=== PATIENT | male | born 1975 | race Caucasian/White ===

== ENCOUNTER 2024-01-22 11:17 | Day surgery (SDC) | payer OTHER, SELFPAY ==
--- NOTE | 2024-01-21 20:54 | HPE_ITS ---
Assessment and Plan Assessment and plan (1) Encounter for screening colonoscopy: Status: Acute Assessment and plan: I reviewed the plan for a screening colonoscopy with Ricardo and the role of the test in terms of routine health maintenance. I explained the risks and the benefits of the procedure, and I think he is able to provide informed consent. History of Present Illness History of Present Illness Chief Complaint: screening colonoscopy Narrative: 48 y/o male with history of CAD (s/p stent placement [place] [facility] [place] GERD, HLD, diabetes, HTN and depression presents for colonoscopy screening pre-op. He us accompanied today by two corrections officers. He has a family history of colon cancer in his mother. He denies any changes in bowel habits including bloody or black tarry stools, abdominal pain, diarrhea or constipation. He denies constitutional symptoms. He denies chest pain, palpitations, dyspnea or dyspnea with exertion. He states he follows up often with [facility] cardiology . He denies prior history or family history of adverse reactions or complications with anesthesia. The patient denies any history of stroke, [place], seizures, bleeding or clotting disorders. He denies having any implanted metal in his body. Since his last office encounter, there have been no major changes to the history. [facility] All Active Problems Pain in right foot (Acute) Pain in left foot (Acute) Ingrown toenail (Acute) Encounter for screening colonoscopy (Acute) Diastasis recti (Acute) Medical History Hard of hearing Obesity Depression Onychomycosis GERD (gastroesophageal reflux disease) Hyperlipidemia NSTEMI (non-ST elevated myocardial infarction) x2. Per corrections F/U with cardiology 01/2023. Next appt 02/05/24. Diabetes Hypertension Surgical History H/O hand surgery H/O elbow surgery History of back surgery History of ankle surgery S/P cardiac catheterization (~07/05/22) [facility] [place] History of heart artery stent [facility] [place] stents total Social History Smoking/Tobacco Use Status: Former Tobacco Use Smoking risk assessment performed?: Yes Alcohol Intake: former Substance use type: does not use Housing: other Additional Social history: [facility] Allergies and Home Medications Allergies Allergy/AdvReac Type Severity Reaction Status Date / Time No Known Allergies Allergy Verified 01/22/24 12:19 Home Medications ?Medication ?Instructions ?Recorded ?Confirmed ?Type amlodipine 5 mg tablet 5 mg PO DAILY 02/01/23 01/22/24 History aspirin 81 mg tablet,delayed 81 mg PO DAILY 02/01/23 01/18/24 History release atorvastatin 80 mg tablet 80 mg PO DAILY 02/01/23 01/22/24 History chlorthalidone 50 mg tablet 25 mg PO DAILY 02/01/23 01/22/24 History clopidogrel 75 mg tablet 75 mg PO DAILY 02/01/23 01/18/24 History duloxetine 60 mg capsule,delayed 60 mg PO DAILY 02/01/23 01/22/24 History release empagliflozin 25 mg tablet 25 mg PO DAILY 02/01/23 01/22/24 History (Jardiance) fenofibrate nanocrystallized 145 145 mg PO DAILY 02/01/23 01/22/24 History mg tablet insulin regular human 100 unit/mL 1 sliding scale dose subcut 02/01/23 01/22/24 History injection solution (Novolin R USEASDIRECTD Regular U-100 Insulin) isosorbide mononitrate 60 mg 60 mg PO DAILY 02/01/23 01/22/24 History tablet,extended release 24 hr metoprolol succinate 50 mg 50 mg PO DAILY 02/01/23 01/22/24 History tablet,extended release 24 hr pantoprazole 40 mg tablet,delayed 40 mg PO DAILY 02/01/23 01/22/24 History release sacubitril 24 mg-valsartan 26 mg 1 tab PO BID 02/01/23 01/22/24 History tablet (Entresto) simethicone 180 mg capsule (Gas 180 mg PO DAILY 02/01/23 01/22/24 History Relief (simethicone)) insulin glargine 100 unit/mL (3 50 unit subcut QAM 06/28/23 01/22/24 History mL) subcutaneous pen (Lantus Solostar U-100 Insulin) metformin 1,000 mg tablet,extended 2,000 mg PO DAILY 11/16/23 01/22/24 History release 24hr (osmotic) acetaminophen 500 mg capsule 1,000 mg PO Q8H 01/18/24 01/22/24 History Exam Const General: cooperative, healthy appearing and not in acute distress Neck Neck: normal visual inspection, no lymphadenopathy and supple Resp Effort & Inspection: normal respiratory effort Auscultation: clear to auscultation bilaterally Cardio Jugular venous pressure: no JVD Rate: regular rate Rhythm: regular rhythm Heart Sounds: S1 normal and S2 normal GI Inspection: normal to inspection Palpation: soft, no guarding, no hernias and nontender Percussion: normal to percussion Auscultation: normal bowel sounds Neuro General: patient alert, patient awake and patient oriented x3 Psych Appearance: grossly normal
--- NOTE | 2024-01-21 20:56 | PDOC.DSDIS_ITS ---
Date of service: 01/22/24 Time of Service: 13:32 Discharge Plan Disposition Patient Disposition: Home Condition: Good Discharge Details Reason For Visit: screening colonoscopy Attending Provider: Thomas Ramos Primary Care Provider: Unknown,Unknown Home Meds and New Rx's Prescriptions: Continued insulin glargine [Lantus Solostar U-100 Insulin] 100 unit/mL (3 mL) insulin pen 50 unit subcut QAM Rx Instructions: Verified with [place] [facility] metformin 1,000 mg tablet extended release 24hr 2,000 mg PO DAILY amlodipine 5 mg tablet 5 mg PO DAILY aspirin 81 mg tablet,delayed release (DR/EC) 81 mg PO DAILY atorvastatin 80 mg tablet 80 mg PO DAILY chlorthalidone 50 mg tablet 25 mg PO DAILY clopidogrel 75 mg tablet 75 mg PO DAILY duloxetine 60 mg capsule,delayed release(DR/EC) 60 mg PO DAILY Entresto 24-26 mg tablet 1 tab PO BID fenofibrate nanocrystallized 145 mg tablet 145 mg PO DAILY isosorbide mononitrate 60 mg tablet extended release 24 hr 60 mg PO DAILY Jardiance 25 mg tablet 25 mg PO DAILY metoprolol succinate 50 mg tablet extended release 24 hr 50 mg PO DAILY Novolin R Regular U100 Insulin 100 unit/mL solution 1 sliding scale dose subcut USEASDIRECTD pantoprazole 40 mg tablet,delayed release (DR/EC) 40 mg PO DAILY simethicone [Gas Relief (simethicone)] 180 mg capsule 180 mg PO DAILY acetaminophen 500 mg capsule 1,000 mg PO Q8H Discharge Instructions Instructions: Diverticulosis Additional Instructions: According, we are able to complete your colonoscopy today without any difficulty. Everything went very smoothly. Your prep was excellent and I could see everything fine. I did not see any signs of tumors or polyps. You do have a little bit of diverticulosis. This occurs when the muscular portion of the colon wall weekends as we age. This causes the pockets to form. Sometimes t hese get inflamed, and cause quite a bit of pain within the abdomen. This flareups are typically referred to as diverticulitis. Hopefully, years will never bother you. Attached a little bit of information here about basic approaches to diverticular disease. Generally my recommendation is to maintain a diet that is rich in fiber, stay well-hydrated, and avoid symptoms of constipation. They have any questions, or need anything, please do not hesitate to ask, otherwise we will plan for repeat colonoscopy in 5 years based on your family history. 1. If tolerated, consume a soft, low fiber diet for 1-2 days. 2[address] Do not drive, drink alcohol, operate machinery, make critical decisions, or do activities that require coordination or balance for 24 hours. 3. Because air was put into your colon during the procedure, expelling air from your rectum (passing gas or farting) is normal. 4. You may not have a bowel movement for 1-3 days because of the colonoscopy prep. This is normal. 5. Go directly to the emergency room if you notice any of the following: Develop chills (warm to touch), or if you have a thermometer and your temperature is above 101 Difficulty breathing or difficultly swallowing Persistent vomiting Severe abdominal pain, other than gas cramps Severe chest pain Black, tarry stools Any bleeding ? exceeding one tablespoon 6. Call your physician if the site where your intravenous was started becomes red, swollen, painful, and warm to touch. 7. Your physician has reviewed your pre-procedure medications. Please continue to take those medications as previously ordered. You will be given specific information/education regarding any changes to your medications before leaving. Activity:: Activity as Tolerated Diet:: As Tolerated Discharge Orders Discharge Orders: Discharge Order (Routine); Ordered 01/21/24 Ordered By: Thomas Ramos DS: Diagnosis Discharge Diagnosis (1) Encounter for screening colonoscopy: Status: Acute Asessment and Plan: Diverticulosis; otherwise negative screening colonoscopy
--- NOTE | 2024-01-21 20:57 | COLE_ITS ---
Date of service: 01/22/24 Time of Service: 13:38 Colonoscopy Report Date of procedure: 01/22/24 Pre-op diagnosis general: screening colonoscopy Post-op diagnosis procedure note: other (Negative screening colonoscopy) Procedure: colonoscopy Surgeon: Thomas Ramos Anesthesia Type: General:No Airway Estimated blood loss (mL): 0 Pathology: none sent Complications: None Disposition: same day Indications: Ricardo is a 48 year old man with a family history of colon cancer who needs a screening colonoscopy Prep: Miralax/Dulcolax Procedure Start Time: 13:10 Procedure End Time: : Retraction Time: 11 Findings: Sigmoid diverticulosis; otherwise negative colonoscopy Procedure Description: After the induction of anesthesia, and with the patient in left lateral decubitus position, I began by performing an external anorectal exam.? Perineum and skin were normal, as was the anal verge.? There was no evidence of external hemorrhoids.? Next, I performed a digital rectal exam.? I did not appreciate any abnormal findings.? Next, I advanced a colonoscope into the rectal vault.? I performed retroflexion.? This appeared normal.? Using insufflation, I then advanced the colonoscope beyond the rectal folds and into the sigmoid colon bef ore advancing towards the cecum.? There was sigmoid diverticulosis.? The scope was noted to be in the cecum by identification of the ileocecal valve and appendiceal orifice.? I then began withdrawing the colonoscope using repeated irrigation as necessary for full evaluation of the colonic mucosa. ?Once the scope was withdrawn to the level of the rectum, great care was taken to examine portions of the rectal folds.? I did not see any signs of tumors or polyps. Finally, the scope was withdrawn and the patient was brought to the same-day surgery recovery unit as the anesthetic wore off. ?The findings and instructions were shared with the patient prior to discharge. Sherrill Bowel Prep Sherrill Bowel Prep Right Colon: 3 Left Colon: 3 Transverse Colon: 3 Total Score: 9
--- NOTE | 2024-01-22 06:19 | ANES.PREOP_ITS ---
General Info Date of Service Date Performed: 01/22/24 Height: 5 ft 10 in Weight: 117.934 kg Body Mass Index (BMI): 37.3 Surgical Procedure: Operation Date: 01/22/24 07:35 Proposed Procedure Side Surgeon anita Ramos MD Meds Allergies and Home Medications Allergies Allergy/AdvReac Type Severity Reaction Status Date / Time No Known Allergies Allergy Verified 01/22/24 12:19 Home Medication ?Medication ?Instructions ?Recorded amlodipine 5 mg tablet 5 mg PO DAILY 02/01/23 aspirin 81 mg tablet,delayed 81 mg PO DAILY 02/01/23 release atorvastatin 80 mg tablet 80 mg PO DAILY 02/01/23 chlorthalidone 50 mg tablet 25 mg PO DAILY 02/01/23 clopidogrel 75 mg tablet 75 mg PO DAILY 02/01/23 duloxetine 60 mg capsule,delayed 60 mg PO DAILY 02/01/23 release empagliflozin 25 mg tablet 25 mg PO DAILY 02/01/23 (Jardiance) fenofibrate nanocrystallized 145 145 mg PO DAILY 02/01/23 mg tablet insulin regular human 100 unit/mL 1 sliding scale dose subcut 02/01/23 injection solution (Novolin R USEASDIRECTD Regular U-100 Insulin) isosorbide mononitrate 60 mg 60 mg PO DAILY 02/01/23 tablet,extended release 24 hr metoprolol succinate 50 mg 50 mg PO DAILY 02/01/23 tablet,extended release 24 hr pantoprazole 40 mg tablet,delayed 40 mg PO DAILY 02/01/23 release sacubitril 24 mg-valsartan 26 mg 1 tab PO BID 02/01/23 tablet (Entresto) simethicone 180 mg capsule (Gas 180 mg PO DAILY 02/01/23 Relief (simethicone)) insulin glargine 100 unit/mL (3 50 unit subcut QAM 06/28/23 mL) subcutaneous pen (Lantus Solostar U-100 Insulin) metformin 1,000 mg tablet,extended 2,000 mg PO DAILY 11/16/23 release 24hr (osmotic) acetaminophen 500 mg capsule 1,000 mg PO Q8H 01/18/24 Current Visit Medications: Current Medications Generic Name Dose Route Start Last Admin Trade Name Freq PRN Reason Stop Dose Admin Ringer's Solution 500 mls @ 80 mls/hr 01/22/24 06:00 IV 01/22/24 23:59 DIRECTED [facility] IV Miscellaneous Supplies 1 each 01/22/24 06:00 Iv Access IV 01/22/24 23:59 DIRECTED [facility] Ondansetron HCl 4 mg 01/21/24 20:58 Ondansetron 4 Mg/2 Ml Vial IVP 02/20/24 20:57 Q4H PRN PRN Nausea / Vomiting Sodium Chloride 0 ml 01/22/24 06:00 Normal Saline Flush 10 Ml Syr IV 01/22/24 23:59 PRN PRN Sodium Chloride 0 ml 01/22/24 06:00 Normal Saline 10 Ml Vial IJ 01/22/24 23:59 DIRECTED PRN Sterile Water 0 ml 01/22/24 06:00 Water,Injection,Sterile 10 Ml Vial IJ 01/22/24 23:59 DIRECTED PRN PFSH Active Problems Active Problems: Problem Status Onset Code Pain in right foot Acute M79.671 Pain in left foot Acute M79.672 Ingrown toenail Acute L60.0 Encounter for screening colonoscopy Acute Z12.11 Diastasis recti Acute M62.08 Medical History Medical History Hard of hearing Obesity Depression Onychomycosis GERD (gastroesophageal reflux disease) Hyperlipidemia NSTEMI (non-ST elevated myocardial infarction) x2. Per corrections F/U with cardiology 01/2023. Next appt 02/05/24. Diabetes Hypertension Surgical History Surgical History H/O hand surgery H/O elbow surgery History of back surgery History of ankle surgery S/P cardiac catheterization (~07/05/22) [facility] [place] History of heart artery stent [facility] [place] stents total Tobacco Smoking/Tobacco Use Status: Former Tobacco Use Alcohol Alcohol Intake: former Substance Use Substance use type: does not use Vital Signs and Lab Results Lab Results Blood Type / Crossmatch: No Data to Display Complete Blood Count: No Data to Display Complete Metabolic Panel: No Data to Display Liver Function Panel: No Data to Display Coagulation Panel: No Data to Display Cardiac Panel: No Data to Display Arterial Blood Gas: No Data to Display Venous Blood Gas: No Data to Display Pancreas Panel: No Data to Display Thyroid Panel: No Data to Display Infectious Disease: No Data to Display Blood Cultures: No Data to Display Toxicology Panel: No Data to Display Imaging and Studies Imaging and Studies Study information below may be from another EMR and interpreted by another provider. Please see original notes in EMR for more complete details. Echocardiogram Summary: ECHO: 03/2023- EF 60-65%. No hemodynamically significant valve disease. Pulmonary artery pressures are normal. Anesthesia Assessment and Plan Anesthesia History Personal History: Unknown Anesthesia History Family History: Family History Unknown Exercise Tolerance Exercise Tolerance: Metabolic Equivalents>4 Cardiac & Pulmonary Exam Cardiac Exam: Normal S1/S2 Heart Sounds Pulmonary Exam: Clear Bilateral Breath Sounds Implantable Cardiac Device Does patient have a Pacemaker or an ICD?: No Airway Exam Known Difficult Airway: No Mallampati Class: 3 Mouth Opening: Normal (> 3cm) Thyromental Distance: Greater than 3 cm Neck Range of Motion: Full ROM Neck Circumference: Normal Teeth Condition: Normal Dentition ASA Classification ASA Score: ASA 3 Emergency Case?: No NPO Status NPO Status: NPO Clears >2 hours, Solids >8 hours Anesthesia Plan Resuscitation Status: Full Code Anesthesia Technique: General Anesthesia Airway Planned: Natural Airway Monitors Used: Standard Monitors Preoperative Comments:: 48 y/o male with history of CAD (s/p stent placement at [facility] [place]), GERD, HLD, diabetes, HTN and depression presents for colonoscopy screening. Family hx of colon CA
[2024-01-22 11:50] VITALS: BP 137/89; PULSE 71; RESP 18; TEMP 36.2; O2SAT 97
[2024-01-22 12:41] VITALS: BMI 37.3
[2024-01-22] MEDS: Lactated Ringers 500 ML 80 ML IV (12:45)
[2024-01-22 13:34] VITALS: BP 95/72; PULSE 71; RESP 16; TEMP 36.4; O2SAT 92
--- NOTE | 2024-01-22 13:44 | W.ANESPOSTOP ---
Postoperative Evaluation Date, Time and Location Date Performed: 01/22/24 Time Performed: 13:45 Patient Location: Day Surgery Unit Vital Signs Most Recent Imported Vital Signs: Most Recent Vital Signs Temp Pulse Resp BP Pulse Ox 36.4 C L 71 16 95/72 L 92 01/22/24 13:34 01/22/24 13:34 01/22/24 13:34 01/22/24 13:34 01/22/24 13:34 Pain Score Most Recent Pain Score: Most Recent Pain Score Pain Level 3 01/22/24 11:50 Assessment Mental Status: Awake (Alert & Oriented to Patient Baseline) Airway and Respiratory Function: Patent airway with normal (patient baseline) respiratory exam Cardiovascular Function: Hemodynamically Stable Hydration Status: Adequately Hydrated Nausea & Vomiting: No Nausea or Vomiting Pain: Pt. Denies Any Pain Peripheral Nerve Block: Patient did not receive a nerve block
== END 2024-01-22 14:38 | disposition home or self-care (01) ==
LOC: SUR 11:18
PROVIDERS: Visit Provider Surgery
PROC: 0DJD8ZZ Inspection of Lower Intestinal Tract, Via Natural or Artificial Opening Endoscopic (ICD-10-PCS; CPT 45378; principal; 2024-01-22 13:30)
DX: Z12.11 Encounter for screening for malignant neoplasm of colon (principal); K57.30 Diverticulosis of large intestine without perforation or abscess without bleeding; Z80.0 Family history of malignant neoplasm of digestive organs; I25.10 Atherosclerotic heart disease of native coronary artery without angina pectoris; E11.9 Type 2 diabetes mellitus without complications; I10 Essential (primary) hypertension; Z95.5 Presence of coronary angioplasty implant and graft
CPT/HCPCS: 45378; J2704